=== PATIENT | female | born 1965 | race Caucasian/White ===

== ENCOUNTER → 2021-06-15 | Outpatient (CLI) | payer OTHER ==
[~2021-06-15] MED LIST: CEFZIL500 MG PO; CLARITIN10 MG PO; COMBIVENT1 ARO IH; MEDROL DOSEPAK4 MG PO; PROVENTIL0.09 MG/AC IH; ZITHROMAX Z PA250 MG PO; ZYRTEC10 MG PO
== END | disposition home or self-care (01) ==
LOC: LAB 18:32
PROVIDERS: ATTEND Nurse Practitioner Family
DX: L08.0 Pyoderma (principal)